=== PATIENT | male | born 1985 | race Caucasian/White ===

== ENCOUNTER 2016-08-25 19:48 | Emergency (ER) | payer OTHER ==
[2016-08-25] MEDS ORDERED: IBUPROFEN 600 MG TABLET PO ONE ×2 (20:30→20:41)
== END 2016-08-25 21:13 | disposition left against medical advice (07) ==
DX: M54.41 Lumbago with sciatica, right side (principal); F17.200 Nicotine dependence, unspecified, uncomplicated; R26.2 Difficulty in walking, not elsewhere classified
CPT/HCPCS: 99283; A4606; Z7610

== ENCOUNTER 2018-09-01 23:02 | Emergency (ER) | payer OTHER ==
[~2018-09-01] VITALS: Ht 175.3 cm; Wt 94.3 kg
--- NOTE | 2018-09-01 23:15 | NUR ---
TO BED 3 AMBULATORY C/O LT HAND NUMBNESS X 2HRS RADATES TO LT ELBOW, LT SIDE NECK. PT AAOX4 NO ACUTE DISTRESS NOTED, RESP EVEN AND UNLABORED. PT APPREARS ANXIOUS MILDLY HYPERVENTILATING. PLACE PT ON CARDIAC MONITORING, CONTINUOUS POX. PERNDING ER MD MCCRARY.
--- NOTE | 2018-09-01 23:49 | NUR ---
ALESSANDRA DRAWN BY DINING MANAGER.
[2018-09-01 23:54] LABS: BASOPHILS % (AUTO) 0.6 % (0.0-2.0); EOSINOPHILS % (AUTO) 2.6 % (0.0-6.0); HEMATOCRIT 41 % (39-51); HEMOGLOBIN 14.2 g/dL (13.5-17.5); LYMPHOCYTES # (AUTO) 3.1 /CMM (0.8-4.8); LYMPHOCYTES % (AUTO) 42.6 % (20.0-44.0); MEAN CORPUSCULAR HGB CONC 34 g/dl (31.0-36.0); MEAN CORPUSCULAR VOLUME 86 fL (80-96); MONOCYTES # (AUTO) 0.4 /CMM (0.1-1.30); MONOCYTES % (AUTO) 5.9 % (2.0-12.0); NEUTROPHILS # (AUTO) 3.6 /CMM (1.8-8.9); NEUTROPHILS % (AUTO) 48.3 % (43.0-81.0); PLATELET COUNT (AUTO) 168 /CMM (150-450); RED BLOOD CELL COUNT(AUTO) 4.83 MIL/uL (4.5-6.0); WHITE BLOOD COUNT (AUTO) 7.4 K/uL (4.3-11.0)
[2018-09-02] LABS: CARBON DIOXIDE 24 mmol/L (21-32); CHLORIDE 103 mmol/L (98-107); GLUCOSE 163 mg/dL (74-106); POTASSIUM 3.5 mmol/L (3.5-5.1); SODIUM SERUM 137 mmol/L (136-145); UREA NITROGEN, BLOOD 15 mg/dL (7-18)
[2018-09-02 00:02] LABS: ALCOHOL, BLOOD < 3 mg/dL (0-0)
[2018-09-02 00:14] LABS: THYROID STIMULATING HORMONE 1.358 uIU/mL (0.358-3.74)
[2018-09-02 00:17] LABS: D-DIMER 0.19 mg/L(FEU (0.17-0.50)
--- NOTE | 2018-09-02 01:59 | NUR ---
PT ASLEEP, NO ACUTE DISTRESS NOTED, RESP EVEN AND UNLABORED. CALL LIGHT WITHIN REACH.
--- NOTE | 2018-09-02 02:43 | NUR ---
Patient discharged to home in stable condition. Written and verbal after care instructions given. Patient verbalizes understanding of instruction. ambulatory with a steady gait noted. pt aaox4 no acute distress noted, resp even and unlabored. pt denies pain or discomfort at this time.
[2018-09-02 02:51] VITALS: BP 137/62
== END 2018-09-02 02:52 | disposition other institution (70) ==
LOC: ER 23:04
DX: R00.2 Palpitations (principal); M54.12 Radiculopathy, cervical region; I48.0 Paroxysmal atrial fibrillation; F17.210 Nicotine dependence, cigarettes, uncomplicated; R94.31 Abnormal electrocardiogram [ECG] [EKG]
CPT/HCPCS: 36415; 71045; 80048; 80305; 80307; 84443; 84484; 85025; 85378; 85730; 93005; 99285; A4606; G0480

== ENCOUNTER 2019-12-17 09:46 | Emergency (ER) | payer OTHER ==
[~2019-12-17] VITALS: Ht 172.7 cm; Wt 92.1 kg
--- NOTE | 2019-12-17 09:46 | NUR ---
PT BIB SELF C/O PALPITATION STARTED LAST NIGHT, PT IS AAOX4, NOT IN RESPIRATORY DISTRESS, HOOKED TO PROFESSOR OF PHYSICS, KEPT RESTED AND COMFORTABLE, WILL CONTINUE TO MONITOR.
--- NOTE | 2019-12-17 09:50 | NUR ---
SEEN AND EXAMINED BY .
--- NOTE | 2019-12-17 09:55 | NUR ---
PT IV LINE ESTABLISHED BLOOD DRAWN AND SENT TO LAB.
[2019-12-17] MEDS ORDERED: IV NS 0.9% 1,000 ML BAG IV ONE ×3 (10:00→12:00)
[2019-12-17 10:11] LABS: BASOPHILS # (AUTO) 0.1 /CMM (0.0-0.2); BASOPHILS % (AUTO) 0.5 % (0.0-2.0); EOSINOPHILS % (AUTO) 0.6 % (0.0-6.0); HEMATOCRIT 50 % (39-51); HEMOGLOBIN 16.9 g/dL (13.5-17.5); LYMPHOCYTES # (AUTO) 4.5 /CMM (0.8-4.8); LYMPHOCYTES % (AUTO) 44.9 % (20.0-44.0); MEAN CORPUSCULAR HGB CONC 34 g/dl (31.0-36.0); MEAN CORPUSCULAR VOLUME 85 fL (80-96); MONOCYTES # (AUTO) 0.6 /CMM (0.1-1.30); MONOCYTES % (AUTO) 6.5 % (2.0-12.0); NEUTROPHILS # (AUTO) 4.7 /CMM (1.8-8.9); NEUTROPHILS % (AUTO) 47.5 % (43.0-81.0); PLATELET COUNT (AUTO) 211 /CMM (150-450); RED BLOOD CELL COUNT(AUTO) 5.91 MIL/uL (4.5-6.0)
[2019-12-17 10:18] LABS: CALCIUM, SERUM 9.3 mg/dL (8.5-10.1); CARBON DIOXIDE 28 mmol/L (21-32); CHLORIDE 102 mmol/L (98-107); CREATININE 1.1 mg/dL (0.6-1.3); GLUCOSE 112 mg/dL (74-106); POTASSIUM 3.8 mmol/L (3.5-5.1); SODIUM SERUM 139 mmol/L (136-145); UREA NITROGEN, BLOOD 13 mg/dL (7-18)
[2019-12-17 10:31] LABS: ALANINE AMINOTRANSFERASE 52 U/L (12-78); ALBUMIN 4.7 g/dL (3.4-5.0); ALKALINE PHOSPHATASE 53 U/L (46-116); ASPARTATE AMINOTRANSFERASE 26 U/L (15-37); B-TYPE NATRIURETIC PEPTIDE 28 PG/ML (0-125); BILIRUBIN,DIRECT 0.1 mg/dL (0.0-0.2); BILIRUBIN,TOTAL 0.6 mg/dL (0.2-1.0); TOTAL PROTEIN, SERUM 8.4 g/dL (6.4-8.2)
[2019-12-17] MEDS ORDERED: DILTIAZEM HCL 50 MG IV ONE (11:37)
[2019-12-17] MEDS ORDERED: DILTIAZEM HCL 50 MG IV INJ ONE (12:00)
[2019-12-17 12:45] VITALS: BP 127/72
--- NOTE | 2019-12-17 12:45 | NUR ---
IV removed. Catheter intact and site benign. Pressure and 4x4 applied to site. No bleeding noted. Patient discharged to home in stable condition. Written and verbal after care instructions given. Patient verbalizes understanding of instruction.
== END 2019-12-17 12:46 | disposition home or self-care (01) ==
LOC: ER 09:50
DX: I48.91 Unspecified atrial fibrillation (principal); T51.8X1A Toxic effect of other alcohols, accidental (unintentional), initial encounter; E86.0 Dehydration; F17.210 Nicotine dependence, cigarettes, uncomplicated; Y92.89 Other specified places as the place of occurrence of the external cause
CPT/HCPCS: 36415; 71045; 80048; 80076; 80307; 83880; 84484; 85025; 93005 ×3; 96361; 96374; 99285; J3490; J7030 ×3; G0480